=== PATIENT | female | born 1990 | race Caucasian/White ===

== ENCOUNTER → 2020-05-27 12:41 | Outpatient (CLI) | payer OTHER, SELFPAY ==
[2020-05-27 12:44] LABS: Adenovirus F 40/41, stool Not Detected (NotDetected); Astrovirus Not Detected (NotDetected); Clostridium Difficile A/B, PCR Not Detected (NotDetected); Cryptosporidium Not Detected (NotDetected); Cyclospora Cayetanesis Not Detected (NotDetected); Entamoeba histolytica Not Detected (NotDetected); Enteroaggregative E coli Not Detected (NotDetected); Enteropathogenic E coli Not Detected (NotDetected); Enterotoxigenic E coli Not Detected (NotDetected); Giardia lamblia Not Detected (NotDetected); Norovirus Not Detected (NotDetected); Plesimonas Shigalloides, PCR Not Detected (NotDetected); Rotavirus A Not Detected (NotDetected); Salmonella, PCR Not Detected (NotDetected); Sapovirus Not Detected (NotDetected); Shiga-like toxin E coli Not Detected (NotDetected); Shigella Enterovasive E coli Not Detected (NotDetected); Vibrio Cholerae Not Detected (NotDetected); Vibrio, PCR Not Detected (NotDetected); Yersinia Entercolitica, PCR Not Detected (NotDetected)
[2020-05-27 16:47] LABS: Coronavirus 19 IgG Antibody Negative (Negative); Coronavirus 19 IgM Antibody Negative (Negative)
[2020-05-27 16:59] LABS: Campylobacter Detected (NotDetected)
[2020-05-29 22:35] LABS: Covid-19 Nasal PCR Sendout Lex POSITIVE
== END ==
PROVIDERS: PCP Family Medicine; Visit Provider Family Medicine
DX: Z20.828 Contact with and (suspected) exposure to other viral communicable diseases (principal); U07.1 COVID-19; R19.7 Diarrhea, unspecified; A04.5 Campylobacter enteritis
CPT/HCPCS: 36415; 86328; 87507; U0004

== ENCOUNTER → 2020-10-17 12:52 | Outpatient (CLI) | payer OTHER, SELFPAY ==
--- NOTE | 2020-10-17 13:03 | MR_ITS ---
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 FINDINGS: No midline shift or mass effect evident. No evidence of acute infarction. Previous CT scan demonstrated a cystic lesion in the left pre pontine region extending cephalad into the ambient cistern toward the medial aspect of the left temporal lobe causing compression upon the chanelle and midbrain. There has been interval surgery. CSF spaces slightly prominent in the pre pontine area centrally and on the left with marked reduction in compression upon the chanelle and midbrain. No abnormal enhancement. No midline shift or mass effect. No acute infarction or acute intracranial hemorrhage. The cerebellopontine angles and cerebellum are unremarkable. There is some minimal deformity with the left cerebral peduncle smaller than the right side but could be due to the chronic compression. There is expected enhancement of the cavernous sinus. The pituitary, optic chiasm, corpus callosum, and craniocervical junction have an unremarkable appearance. Small amount fluid is present in the left mastoid sinus. No paranasal sinus air-fluid level. The orbits have an unremarkable appearance. IMPRESSION: 1. Previously noted large cystic lesion at the skull base has been removed. There remains some asymmetric fullness in the CSF space in the pre pontine region centrally and on the left which may be related to residual cyst or could be due to postsurgical changes with benign asymmetric prominence of the arachnoid space at this region. There is no enhancement at this area. Continued follow-up is suggested to confirm stability. There are no other postoperative exams available at this institution for comparison. There is some minimal flattening of the left aspect of the chanelle and the left middle cerebral peduncle much improved compared to the previous CT scan of 11/13/2019. 2. Otherwise negative MRI of the brain without and with enhancement. 3. Small amount fluid within the left mastoid sinus Dictated by: Red Mills MD 10/21/2020 09:46 Red Mills MD in [place] 10/21/2020 09:46
== END ==
PROVIDERS: PCP Family Medicine; Visit Provider Family Medicine
DX: R20.0 Anesthesia of skin (principal)
CPT/HCPCS: 70553; A9576

== ENCOUNTER → 2022-01-15 12:55 | Outpatient (CLI) | payer OTHER, SELFPAY ==
--- NOTE | 2022-01-15 13:01 | MR_ITS ---
FINAL REPORT CLINICAL HISTORY: BENIGN NEOPLASM OF BRAIN, USPECIFIED BRAIN REGION. PT STATES THIS IS JUST A FOLLOW UP FROM PRIOR MRI'S. COMPARISON: October 17, 2020 FINDINGS: Multiplanar MR imaging of the brain was performed without and with contrast. There is no evidence of intracranial hemorrhage or mass. No abnormal extra-axial fluid collection is seen. The ventricular size is within normal limits. There is no evidence of shift of the midline structures. There is stable, prominent CSF signal in the pre pontine region that may represent postoperative change. The posterior fossa and brainstem have an unremarkable appearance. No area of abnormal restricted diffusion is identified. No abnormal contrast enhancement is seen. Normal major vessel vascular flow voids are noted. IMPRESSION: Stable, prominent CSF signal in the pre pontine region. No acute intracranial abnormality identified. Reviewed, Interpreted and Dictated by Oliver Menjivar III, MD Transcribed by Hugo Shafer Authenticated by Oliver Menjivar III, MD on 01/15/2022 03:48:31 PM [facility]
== END ==
PROVIDERS: PCP Family Medicine; Visit Provider Family Medicine
DX: D33.2 Benign neoplasm of brain, unspecified (principal)
CPT/HCPCS: 70553; A9576